=== PATIENT | male | born 1995 | race American Indian/Alaskan Native ===

== ENCOUNTER 2022-03-02 10:29 | Emergency (ER) | payer SELFPAY ==
[2022-03-02] MEDS ORDERED: Ketorolac 30 MG/ML SDV IM ONE (11:17)
== END 2022-03-02 11:34 | disposition home or self-care (01) ==
LOC: DL.ED 10:29
DX: M79.672 Pain in left foot (principal); F17.210 Nicotine dependence, cigarettes, uncomplicated
CPT/HCPCS: 73630; 96372; 99283; J1885